=== PATIENT | female | born 1975 | race African-American/Black ===

== ENCOUNTER 2018-02-22 12:15 | Emergency (ER) | payer SELFPAY ==
[~2018-02-22] VITALS: Ht 157.5 cm; Wt 68.2 kg
[2018-02-22 12:30] VITALS: Ht 157.5 cm; Wt 68.2 kg
[2018-02-22 13:24] LABS: BASOPHILS 0.4 % (0-2); EOSINOPHILS 1.8 % (0-7); HEMATOCRIT 33.3 % (36.0-48.0); HEMOGLOBIN 10.4 g/dL (12-16); IMMATURE GRANULOCYTES 0.2 % (0-5); LYMPHOCYTES 30.8 % (15-50); MCH 22.6 pg (26.0-34.0); MCHC 31.2 g/dL (31.0-37.0); MCV 72.4 fL (80.0-100.0); MEAN PLATELET VOLUME 8.6 fL (7.4-10.4); MONOCYTES 8.7 % (2-11); NEUTROPHILS 58.1 % (40-80); PLATELET COUNT 376 10x3/uL (130-400); RDW 18.2 % (11.5-14.5); WBC 8.3 10x3/uL (4.8-10.8)
[2018-02-22 13:29] LABS: ALBUMIN 3.4 g/dL (3.4-5.0); ALKALINE PHOSPHATASE 81 U/L (46-116); ALT (SGPT) 14 U/L (10-68); APPEARANCE CLEAR (CLEAR); BACTERIA FEW /hpf (NONE SEEN); BILIRUBIN NEGATIVE (NEGATIVE); CALC OSMOLALITY 275 mosm/kg (275-300); CALCIUM 8.9 mg/dL (8.5-10.1); CARBON DIOXIDE 26.1 mmol/L (21.0-32.0); CHLORIDE - SERUM 103 mmol/L (98-107); COLOR YELLOW (YELLOW); CREATININE - SERUM 0.7 mg/dL (0.6-1.3); GLUCOSE 98 mg/dL (74-106); GLUCOSE NEGATIVE (NEGATIVE); KETONE NEGATIVE (NEGATIVE); NITRITE NEGATIVE (NEGATIVE); POTASSIUM - SERUM 3.5 mmol/L (3.5-5.1); PROTEIN NEGATIVE (NEGATIVE); PROTEIN - SERUM 7.9 g/dL (6.4-8.2); RED CELLS - URINE RARE /hpf (0-5); SODIUM 139 mmol/L (136-145); SPECIFIC GRAVITY 1.015 (1.005-1.020); UREA NITROGEN 6 mg/dL (7-18); UROBILINOGEN NORMAL (NORMAL); eGFR NON AFRICAN AMERICAN > 90 mL/min (90-120)
[2018-02-22 13:41] LABS: CKMB 0.5 U/L (0.0-3.6); CREATINE KINASE 97 UL (21-215); MAGNESIUM - SERUM 1.7 mg/dL (1.8-2.4); TROPONIN-I < 0.017 ng/mL (0.000-0.060)
[2018-02-22 13:50] LABS: INR 0.95 (0.85-1.17); PROTIME 12.3 SECONDS (11.6-15.0)
[2018-02-22 13:52] LABS: D-DIMER-QUANTITATIVE 1.63 ug/mLFEU (0.20-0.54)
[2018-02-22] MEDS ORDERED: KEFLEX500 MG PO (18:14)
[2018-02-22] MEDS ORDERED: MACROBID100 MG PO (18:14)
[2018-02-22 18:52] VITALS: BP 115/67
== END 2018-02-22 18:52 | disposition home or self-care (01) ==
LOC: D.ER 12:15
PROVIDERS: Family Medicine
DX: R07.9 Chest pain, unspecified (principal); M54.2 Cervicalgia; N39.0 Urinary tract infection, site not specified; F17.200 Nicotine dependence, unspecified, uncomplicated

== ENCOUNTER 2019-02-11 07:31 | Emergency (ER) | payer SELFPAY ==
[~2019-02-11] VITALS: Ht 157.5 cm; Wt 75.0 kg
[~2019-02-11 07:31] MED LIST: KEFLEX500 MG PO; MACROBID100 MG PO
[2019-02-11 07:34] VITALS: Ht 157.5 cm; Wt 75.0 kg
[2019-02-11 08:46] LABS: HCG SERUM NEGATIVE (NEGATIVE)
[2019-02-11] MEDS ORDERED: MEDROL DOSE PACK4 MG PO (09:20)
[2019-02-11] MEDS ORDERED: CYCLOBENZAPRINE10 MG PO (09:20)
[2019-02-11] MEDS ORDERED: ACETAMINOPHEN500 M1 PO (09:21)
[2019-02-11 11:11] VITALS: BP 121/73
== END 2019-02-11 09:49 | disposition home or self-care (01) ==
LOC: D.ER 07:31
PROVIDERS: Family Medicine
DX: M43.6 Torticollis (principal)